=== PATIENT | male | born 1990 | race Caucasian/White ===

== ENCOUNTER 2020-12-20 07:48 | Emergency (ER) | payer OTHER ==
[~2020-12-20] VITALS: Ht 175.3 cm; Wt 74.8 kg
[2020-12-20] MEDS ORDERED: BUPRENORPHINE HC8 MG SL (07:58)
[2020-12-20 08:11] LABS: BASOPHILS ABSOLUTE AUTO 0.12 K/mm3 (0.00-0.23); BASOPHILS PERCENT AUTO 2 % (0-2); EOSINOPHILS ABSOLUTE AUTO 0.27 K/mm3 (0.00-0.68); EOSINOPHILS PERCENT AUTO 4 % (0-6); Hematocrit 46.5 % (37.0-53.0); Hemoglobin 15.6 g/dL (13.5-17.5); IMMATURE GRAN ABSOLUTE AUTO 0.02 K/mm3 (0.00-0.10); IMMATURE GRAN PERCENT AUTO 0 % (0-1); LYMPHOCYTES ABSOLUTE AUTO 1.84 K/mm3 (0.84-5.20); LYMPHOCYTES PERCENT AUTO 25 % (21-46); MONOCYTES ABSOLUTE AUTO 0.71 K/mm3 (0.16-1.47); MONOCYTES PERCENT AUTO 10 % (4-13); Mean Corpuscular HGB 31.9 pg (26.0-34.0); Mean Corpuscular HGB Conc 33.5 g/dL (31.5-36.5); Mean Corpuscular Volume 95 fL (80-100); Mean Platelet Volume 9.7 fL (9.1-12.4); NEUTROPHILS ABSOLUTE AUTO 4.42 K/mm3 (1.96-9.15); NEUTROPHILS PERCENT AUTO 60 % (41-73); Platelet Count 243 K/mm3 (150-400); RDW Coefficient Variation 12.5 % (11.7-14.2); RDW Standard Deviation 43.8 fL (35.1-46.3); Red Blood Cell Count 4.89 M/mm3 (4.30-5.90); White Blood Cell Count 7.38 K/mm3 (4.00-11.30)
[2020-12-20 08:40] LABS: Alanine Aminotransfer (ALT/SGP 151 U/L (12-78); Albumin, Blood 4.3 g/dL (3.4-5.0); Alk Phos 122 U/L (50-136); Anion Gap 6 mmol/L (6-16); Aspartate Aminotrans (AST/SGOT 197 U/L (12-37); Bilirubin, Total 0.6 mg/dL (0.1-1.0); Blood Urea Nitrogen 6 mg/dL (8-24); CO2, Blood 28 mmol/L (21-32); Calcium, Blood 9.9 mg/dL (8.5-10.1); Chloride, Blood 106 mmol/L (98-108); Creatinine, Blood 0.75 mg/dL (0.60-1.20); Globulin, Blood 4.1 g/dL (2.2-4.0); Glomerular Filtration Rate >60 (60-); Glucose, Blood 121 mg/dL (70-99); Potassium, Blood 4.2 mmol/L (3.5-5.5); Sodium, Blood 140 mmol/L (136-145); Total Protein, Blood 8.4 g/dL (6.4-8.2)
[2020-12-20] MEDS ORDERED: CHLO25 PO (12:05)
== END 2020-12-20 09:44 | disposition home or self-care (01) ==
LOC: ER 07:48
PROVIDERS: Emergency Medicine
DX: R10.13 Epigastric pain (principal); F10.10 Alcohol abuse, uncomplicated; Z79.899 Other long term (current) drug therapy
CPT/HCPCS: 80053; 83690; 85025; 96374; 96375; 99284-25; C9113; J2060; J7030

== ENCOUNTER 2020-12-20 11:32 | Emergency (ER) | payer OTHER ==
[~2020-12-20] VITALS: Ht 180.3 cm; Wt 74.8 kg
[~2020-12-20 11:32] MED LIST: BUPRENORPHINE HC8 MG SL
[2020-12-20] MEDS ORDERED: CHLO25 PO (12:05)
== END 2020-12-20 12:25 | disposition home or self-care (01) ==
LOC: ER 11:32
DX: K85.90 Acute pancreatitis without necrosis or infection, unspecified (principal); F10.139 Alcohol abuse with withdrawal, unspecified; Z79.899 Other long term (current) drug therapy
CPT/HCPCS: 99283

== ENCOUNTER 2020-12-22 15:05 | Inpatient (IN) | payer OTHER ==
[~2020-12-22] VITALS: Ht 175.3 cm; Wt 72.6 kg
[~2020-12-22 15:05] MED LIST changes: +CHLO25 PO
[2020-12-22 15:38] LABS: BASOPHILS ABSOLUTE AUTO 0.08 K/mm3 (0.00-0.23); BASOPHILS PERCENT AUTO 1 % (0-2); EOSINOPHILS ABSOLUTE AUTO 0.32 K/mm3 (0.00-0.68); EOSINOPHILS PERCENT AUTO 3 % (0-6); Hematocrit 47.3 % (37.0-53.0); Hemoglobin 15.6 g/dL (13.5-17.5); IMMATURE GRAN ABSOLUTE AUTO 0.05 K/mm3 (0.00-0.10); IMMATURE GRAN PERCENT AUTO 1 % (0-1); LYMPHOCYTES ABSOLUTE AUTO 1.65 K/mm3 (0.84-5.20); LYMPHOCYTES PERCENT AUTO 17 % (21-46); MONOCYTES ABSOLUTE AUTO 0.77 K/mm3 (0.16-1.47); MONOCYTES PERCENT AUTO 8 % (4-13); Mean Corpuscular HGB 31.6 pg (26.0-34.0); Mean Corpuscular Volume 96 fL (80-100); Mean Platelet Volume 9.9 fL (9.1-12.4); NEUTROPHILS PERCENT AUTO 71 % (41-73); Platelet Count 227 K/mm3 (150-400); RDW Standard Deviation 43.1 fL (35.1-46.3); Red Blood Cell Count 4.93 M/mm3 (4.30-5.90); White Blood Cell Count 9.97 K/mm3 (4.00-11.30)
[2020-12-22 16:30] LABS: Alanine Aminotransfer (ALT/SGP 108 U/L (12-78); Albumin, Blood 3.9 g/dL (3.4-5.0); Albumin/Globulin Ratio 1.1 (0.8-1.8); Alk Phos 118 U/L (50-136); Anion Gap 7 mmol/L (6-16); Aspartate Aminotrans (AST/SGOT 94 U/L (12-37); Bilirubin, Total 0.6 mg/dL (0.1-1.0); Blood Urea Nitrogen 8 mg/dL (8-24); Bun/Creatinine Ratio 11.9 (12.0-20.0); CO2, Blood 25 mmol/L (21-32); Calcium, Blood 9.3 mg/dL (8.5-10.1); Chloride, Blood 104 mmol/L (98-108); Creatinine, Blood 0.67 mg/dL (0.60-1.20); Globulin, Blood 3.7 g/dL (2.2-4.0); Glomerular Filtration Rate >60 (60-); Glucose, Blood 130 mg/dL (70-99); Sodium, Blood 136 mmol/L (136-145); Total Protein, Blood 7.6 g/dL (6.4-8.2)
[2020-12-22] MEDS ORDERED: ZOLOFT50 MG PO (19:38)
[2020-12-22] MEDS ORDERED: Chlordiazepoxid25 MG PO (20:13)
[2020-12-22 20:55] LABS: Source, Urine Clean Catch
[2020-12-22 20:59] LABS: Appearance, Urine Clear (Clear); Bilirubin, Urine Neg (Neg); Blood, Urine Neg (Neg); Color, Urine Yellow (P-Yellow); Glucose Qualitative, Urine Neg (Neg); Ketones, Urine 3+ (Neg); Leukocyte Esterase, Urine Neg (Neg); Nitrite, Urine Neg (Neg); Protein, Urine Neg (Neg); Urobilinogen, Urine NORM (Normal)
[2020-12-22 21:44] LABS: CHOL/HDL RATIO 2.3; Cholesterol 212 mg/dL (50-200); HDL Cholesterol 94 mg/dL (>39); LDL/HDL RATIO 1.1; Low Density Lipoprotein Chol 107 mg/dL (0-110); Triglycerides 55 mg/dL (30-140); Very Low Density Lipoprot Chol 11 mg/dL (6-28)
--- NOTE | 2020-12-23 05:29 | NUR ---
SHIFT SUMMARY PT ADMITTED FROM THE ED WITH PANCREATITIS RELATED TO ETOH. PT WAS RECENTLY SEEN IS THE LAST FEW DAYS FOR ETOH WITHDRAWAL BUT HAS COME BACK DUE TO WORSENING ABD PAIN. PT PAIN IS UNRELIEVED BY MOST PAIN MEDICATION. CIWA'S DONE AND PT IS RANGING BETWEEN 8-12. MEDICATED PER EMR. PT STATES SOME RELIEF OF SYMPTOMS AFTER RECEIVING ATIVAN. VSS. WILL REPORT TO ONCOMING RN.
[2020-12-23 05:30] LABS: BASOPHILS ABSOLUTE AUTO 0.04 K/mm3 (0.00-0.23); BASOPHILS PERCENT AUTO 0 % (0-2); EOSINOPHILS PERCENT AUTO 1 % (0-6); Hemoglobin 13.9 g/dL (13.5-17.5); IMMATURE GRAN ABSOLUTE AUTO 0.06 K/mm3 (0.00-0.10); IMMATURE GRAN PERCENT AUTO 1 % (0-1); LYMPHOCYTES PERCENT AUTO 8 % (21-46); MONOCYTES ABSOLUTE AUTO 0.94 K/mm3 (0.16-1.47); MONOCYTES PERCENT AUTO 8 % (4-13); Mean Corpuscular HGB 31.9 pg (26.0-34.0); Mean Corpuscular HGB Conc 33.9 g/dL (31.5-36.5); Mean Corpuscular Volume 94 fL (80-100); Mean Platelet Volume 10.4 fL (9.1-12.4); NEUTROPHILS ABSOLUTE AUTO 9.13 K/mm3 (1.96-9.15); NEUTROPHILS PERCENT AUTO 82 % (41-73); Platelet Count 209 K/mm3 (150-400); RDW Coefficient Variation 11.9 % (11.7-14.2); RDW Standard Deviation 41.4 fL (35.1-46.3); Red Blood Cell Count 4.36 M/mm3 (4.30-5.90); White Blood Cell Count 11.17 K/mm3 (4.00-11.30)
[2020-12-23 05:47] LABS: Alanine Aminotransfer (ALT/SGP 78 U/L (12-78); Albumin, Blood 3.6 g/dL (3.4-5.0); Albumin/Globulin Ratio 1.1 (0.8-1.8); Alk Phos 99 U/L (50-136); Anion Gap 6 mmol/L (6-16); Aspartate Aminotrans (AST/SGOT 52 U/L (12-37); Bilirubin, Total 0.6 mg/dL (0.1-1.0); Blood Urea Nitrogen 5 mg/dL (8-24); Bun/Creatinine Ratio 7.4 (12.0-20.0); CO2, Blood 28 mmol/L (21-32); Calcium, Blood 8.2 mg/dL (8.5-10.1); Chloride, Blood 99 mmol/L (98-108); Creatinine, Blood 0.68 mg/dL (0.60-1.20); Globulin, Blood 3.2 g/dL (2.2-4.0); Glomerular Filtration Rate >60 (60-); Glucose, Blood 133 mg/dL (70-99); Potassium, Blood 3.8 mmol/L (3.5-5.5); Sodium, Blood 133 mmol/L (136-145); Total Protein, Blood 6.8 g/dL (6.4-8.2)
--- NOTE | 2020-12-23 18:45 | NUR ---
SHIFT SUMMARY [place] COMPLAINED OF ABD PAIN FOR WHICH HE GOT TORADOL (NARCS NOT EFFECTIVE DUE TO BUPRENORPHINE). GOT 5-6 DOSES OF IV ATIVAN FOR CIWAH BETWEEN 11-16. LOTS OF VISUAL AND AUDITORY HALLUCINATIONS WITH TREMORS AND SLIGHT CONFUSION. BED ALARM ON. CONTINENT IN URINAL. PT AWARE TO CALL PRIOR TO GETTING UP OOB. KEPT NPO. TOOK MEDS PRESCRIBED. CALL LIGHT IN [place], [facility]
--- NOTE | 2020-12-24 05:06 | NUR ---
SHIFT SUMMARY CIWA SCORES 10-11 UNMEDICATED. PT REPORTS HAVING VISUAL AND AUDITORY HALLUCINATIONS. "HAVING FULL CONVERSATIONS WITH PEOPLE THAT ARENT THERE" AND THAT "EVERYTHING IS MOVING" IN HIS PERIPHERAL VISION. SOME SLIGHT TREMORS AND DIAPHORESIS. PT MEDICATED APPROX EVERY 2 HOURS FOR WITHDRAWAL SYMPTOMS. SOME TACHYCARDIA, OTHERWISE VSS. PT SLEPT OFF AN ON IN BETWEEN MEDICATIONS. WILL CONTINUE TO MONITOR.
[2020-12-24] MEDS ORDERED: Promethazine12.5 M1 PO (12:24)
--- NOTE | 2020-12-24 13:01 | NUR ---
DISCHARGE SUMMARY PATIENT DISCHARGED TO HOME. PATIENT ALERT AND ORIENTED, INDEPENDENT IN THE ROOM THIS SHIFT. PATIENT DENIES PAIN THIS SHIFT. PATIENT DENIES VISUAL HALLUCINATIONS, STATES ONLY MINOR AUDITORY HALLUCINATIONS THIS SHIFT. PATIENT STATES PAIN IN LUQ IS 1/10. PATIENT ADVANCED TO CLEAR LIQUID DIET THIS SHIFT, THEN FULL LIQUID DIET. PATIENT TOLERATED WELL. PATIENT EDUCATED ON ADVANCING DIET SLOWLY AND AVOIDING ALCOHOL. PATIENT PROVIDED WITH DISCHARGE AND MEDICATION EDUCATION. PATIENT DENIES QUESTIONS AT THIS TIME. PATIENT AMBULATED OFF THE FLOOR, DENIES NEED FOR A WHEELCHAIR.
== END 2020-12-24 12:46 | disposition home or self-care (01) | DRG 439 ==
LOC: ER 15:05 → MEDS 19:27
PROVIDERS: Physician Assistant; ADMIT Internal Medicine
DX: K85.20 Alcohol induced acute pancreatitis without necrosis or infection (principal); F10.139 Alcohol abuse with withdrawal, unspecified; E86.0 Dehydration; G89.4 Chronic pain syndrome; Z79.899 Other long term (current) drug therapy; Z79.891 Long term (current) use of opiate analgesic
CPT/HCPCS: 36415; 74177; 80053; 80061; 81003; 83690; 85025; 96374-59; 96375; 96376; 99285-25; A9270; C9113; J1170; J1650; J1885; J2060; J2270; J2405; J3411; J3475; J7030; J7042; Q9967